=== PATIENT | male | born 1965 | race African-American/Black ===

== ENCOUNTER 2022-01-15 18:35 | Inpatient (IN) | payer OTHER ==
[2022-01-15 20:38] VITALS: BMI 24.4
[2022-01-15] MEDS ORDERED: MAGNESIUM HYDROX 2400MG/30ML ORAL SUSPENSION 30 ML CUP PO PRN (21:05)
[2022-01-15] MEDS ORDERED: IBUPROFEN 400 MG TABLET (FP) PO PRN (21:05)
[2022-01-15] MEDS ORDERED: BENZOCAINE/MENTHOL (CHLORASEPTIC ) LOZENGE MM PRN (21:05)
[2022-01-15] MEDS ORDERED: MAGNESIUM CITRATE 300 ML BOTTLE PO PRN (21:05)
[2022-01-15] MEDS ORDERED: IBUPROFEN 600 MG TABLET (FP) PO PRN (21:05)
[2022-01-15] MEDS ORDERED: ACETAMINOPHEN 325 MG TABLET (FP) PO PRN ×2 (21:05)
[2022-01-15] MEDS ORDERED: ONDANSETRON *ODT* 4 MG TABLET SL PRN (21:05)
[2022-01-15] MEDS ORDERED: MAG HYDROX/AL HYDROX/SIMETH 30 ML UNIT-DOSE CUP PO PRN (21:05)
[2022-01-15] MEDS ORDERED: BISMUTH SUBSALICYLATE 524 MG/30 ML PO PRN (21:05)
[2022-01-15] MEDS ORDERED: DICYCLOMINE HCL 10 MG CAPSULE PO PRN (21:05)
[2022-01-15] MEDS ORDERED: diazePAM 5 MG TABLET PO PRN (21:08)
[2022-01-15] MEDS ORDERED: MELATONIN 5 MG TABLETS PO SCH (22:00)
[2022-01-15] MEDS: THIAMINE HCL 100 MG TABLET (FP) PO SCH (22:57)
[2022-01-16] MEDS ORDERED: chlordiazePOXIDE HCL 25 MG CAPSULE PO PRN (08:47)
[2022-01-16] MEDS: METHOCARBAMOL 500 MG TABLET PO PRN (10:23)
[2022-01-16] MEDS: DIVALPROEX SODIUM 250 MG TABLET E.C. PO SCH ×2 (10:23→22:21)
[2022-01-16] MEDS: chlordiazePOXIDE HCL 25 MG CAPSULE PO SCH ×3 (10:24→22:50)
[2022-01-16] MEDS: PRENATAL VITAMINS W/ FOLIC ACID TABLET (FP) PO SCH (10:24)
[2022-01-16] MEDS: GABAPENTIN 100 MG CAPSULE PO SCH ×2 (13:57→22:21)
[2022-01-16 14:19] LABS: HEMATOCRIT 34.4 % (35.4-49); HEMOGLOBIN 11.7 GM/dL (11.7-16.9); MCH 32.6 pg (25.7-33.7); MCHC 33.8 g/dl (32.0-35.9); MEAN CELL VOLUME 96.5 fl (80-96); MEAN PLT VOLUME 9.7 fl (7.5-11.1); PLATELET COUNT 199 10^3/uL (134-434); RBC 3.57 M/mm3 (4.00-5.60); RDW 13.7 % (11.9-15.9); WHITE BLOOD COUNT 7.2 K/mm3 (4.0-10.0)
[2022-01-16 14:37] LABS: CALCIUM 8.5 mg/dL (8.5-10.1)
[2022-01-16 14:38] LABS: ALBUMIN 3.3 g/dl (3.4-5.0); BLOOD UREA NITROGEN 14.3 mg/dL (7-18)
[2022-01-16 14:43] LABS: TOT PROT 6.4 g/dl (6.4-8.2)
[2022-01-16 14:44] LABS: BILIRUBIN,TOTAL 0.3 mg/dL (0.2-1)
[2022-01-16] MEDS: LOPERAMIDE HCL 2 MG CAPSULE PO PRN (19:10)
[2022-01-16] MEDS: THIAMINE HCL 100 MG TABLET (FP) PO SCH (22:21)
[2022-01-16] MEDS: risperiDONE 2 MG TABLET PO SCH (22:21)
[2022-01-16] MEDS: SUVOREXANT 10 MG TABLET PO PRN (22:23)
[2022-01-17] MEDS: GABAPENTIN 100 MG CAPSULE PO SCH ×3 (05:22→22:18)
[2022-01-17] MEDS: chlordiazePOXIDE HCL 25 MG CAPSULE PO SCH ×4 (05:22→22:18)
[2022-01-17] MEDS: DIVALPROEX SODIUM 250 MG TABLET E.C. PO SCH ×2 (12:13→22:17)
[2022-01-17] MEDS: METHOCARBAMOL 500 MG TABLET PO PRN (12:13)
[2022-01-17] MEDS: PRENATAL VITAMINS W/ FOLIC ACID TABLET (FP) PO SCH (12:13)
[2022-01-17] MEDS: SUVOREXANT 10 MG TABLET PO PRN (22:18)
[2022-01-17] MEDS: THIAMINE HCL 100 MG TABLET (FP) PO SCH (22:18)
[2022-01-17] MEDS: risperiDONE 2 MG TABLET PO SCH (22:18)
[2022-01-17] MEDS: LOPERAMIDE HCL 2 MG CAPSULE PO PRN (23:20)
[2022-01-18] MEDS: chlordiazePOXIDE HCL 25 MG CAPSULE PO SCH ×4 (05:12→22:21)
[2022-01-18] MEDS: GABAPENTIN 100 MG CAPSULE PO SCH ×3 (05:12→22:19)
[2022-01-18] MEDS: METHOCARBAMOL 500 MG TABLET PO PRN ×2 (11:17→18:19)
[2022-01-18] MEDS: DIVALPROEX SODIUM 250 MG TABLET E.C. PO SCH ×2 (11:17→22:19)
[2022-01-18] MEDS: PRENATAL VITAMINS W/ FOLIC ACID TABLET (FP) PO SCH (11:17)
[2022-01-18] MEDS: risperiDONE 2 MG TABLET PO SCH (22:19)
[2022-01-18] MEDS: THIAMINE HCL 100 MG TABLET (FP) PO SCH (22:19)
[2022-01-18] MEDS: SUVOREXANT 10 MG TABLET PO PRN (22:21)
[2022-01-19] MEDS ORDERED: chlordiazePOXIDE HCL 10 MG CAPSULE PO PRN
[2022-01-19] MEDS: chlordiazePOXIDE HCL 10 MG CAPSULE PO SCH ×4 (05:33→22:18)
[2022-01-19] MEDS: GABAPENTIN 100 MG CAPSULE PO SCH ×3 (05:34→22:18)
[2022-01-19] MEDS: METHOCARBAMOL 500 MG TABLET PO PRN (10:25)
[2022-01-19] MEDS: PRENATAL VITAMINS W/ FOLIC ACID TABLET (FP) PO SCH (10:25)
[2022-01-19] MEDS: DIVALPROEX SODIUM 250 MG TABLET E.C. PO SCH ×2 (10:25→22:18)
[2022-01-19] MEDS: hydrOXYzine PAMOATE 25 MG CAPSULE (FP) PO PRN (10:25)
[2022-01-19] MEDS: THIAMINE HCL 100 MG TABLET (FP) PO SCH (22:18)
[2022-01-19] MEDS: risperiDONE 2 MG TABLET PO SCH (22:18)
[2022-01-20] MEDS: GABAPENTIN 100 MG CAPSULE PO SCH ×3 (05:59→22:09)
[2022-01-20] MEDS: chlordiazePOXIDE HCL 10 MG CAPSULE PO SCH ×2 (06:00→18:18)
[2022-01-20] MEDS: DIVALPROEX SODIUM 250 MG TABLET E.C. PO SCH ×2 (10:21→22:09)
[2022-01-20] MEDS: PRENATAL VITAMINS W/ FOLIC ACID TABLET (FP) PO SCH (10:21)
[2022-01-20] MEDS: METHOCARBAMOL 500 MG TABLET PO PRN (10:21)
[2022-01-20] MEDS: hydrOXYzine PAMOATE 25 MG CAPSULE (FP) PO PRN ×3 (10:22→18:19)
[2022-01-20] MEDS ORDERED: SUVOREXANT 10 MG TABLET PO PRN (22:00)
[2022-01-20] MEDS: risperiDONE 2 MG TABLET PO SCH (22:09)
[2022-01-20] MEDS: THIAMINE HCL 100 MG TABLET (FP) PO SCH (22:09)
[2022-01-21] MEDS ORDERED: chlordiazePOXIDE HCL 10 MG CAPSULE PO ONE (05:00)
[2022-01-21] MEDS: hydrOXYzine PAMOATE 25 MG CAPSULE (FP) PO PRN (05:58)
[2022-01-21] MEDS: GABAPENTIN 100 MG CAPSULE PO SCH (05:58)
[2022-01-21] MEDS: PRENATAL VITAMINS W/ FOLIC ACID TABLET (FP) PO SCH (10:35)
[2022-01-21] MEDS: DIVALPROEX SODIUM 250 MG TABLET E.C. PO SCH (10:35)
[2022-01-21 13:35] VITALS: BP 128/75; PULSE 95; TEMP 98.8
== END 2022-01-21 13:45 | disposition home or self-care (01) | DRG 897 ==
LOC: YASAS 18:35 → Y6N 21:51
PROVIDERS: ADMIT Allergy & Immunology; ATTEND Surgery
PROC: HZ2ZZZZ Detoxification Services for Substance Abuse Treatment (ICD-10-PCS; principal; 2022-01-15)
DX: F10.230 Alcohol dependence with withdrawal, uncomplicated (principal); F10.282 Alcohol dependence with alcohol-induced sleep disorder; F20.9 Schizophrenia, unspecified; F10.220 Alcohol dependence with intoxication, uncomplicated; Z86.19 Personal history of other infectious and parasitic diseases; Z88.0 Allergy status to penicillin; Z91.410 Personal history of adult physical and sexual abuse
CPT/HCPCS: 36415; 80053; 85027; 86593; 86780; C9803-CS; U0003; U0005